=== PATIENT | female | born 1985 | race Caucasian/White ===

== ENCOUNTER 2020-11-24 07:10 | Inpatient (IN) | payer OTHER ==
[2020-11-24] MEDS ORDERED: Acetaminophen 325 MG Tab PO PRN (07:50)
[2020-11-24] MEDS ORDERED: Sodium Chloride 0.9% 10 ML Syringe FLUSH PRN (07:50)
[2020-11-24] MEDS ORDERED: Ondansetron 4 MG/2 ML SDV IVPUSH PRN ×3 (07:50→23:15)
[2020-11-24] MEDS ORDERED: Nalbuphine 10 MG/1 ML Vial IVPUSH PRN (07:50)
[2020-11-24] MEDS ORDERED: Oxytocin/Lactated Ringers 10 UNIT/1,000 ML BAG IV SCH ×2 (08:00)
[2020-11-24] MEDS ORDERED: ePHEDrine 50 MG/ML SDV IVPUSH PRN ×2 (08:14→23:15)
[2020-11-24] MEDS ORDERED: fentaNYL 100 MCG/2 ML SDV EPIDUR PRN (08:14)
[2020-11-24] MEDS ORDERED: Bupivacaine/fentaNYL/NS 100 ML Bag EPIDUR SCH (08:15)
--- NOTE | 2020-11-24 10:34 | PCM.LDHP ---
L&D History of Present Illness - General Date of Service: 11/24/20 Admit Problem/Dx: Patient Status Order with Admit Dx/Problem 11/24/20 07:50 Patient Status [ADT] Routine Admission Diagnosis/Problem Admission Diagnosis/Problem Source of Information: Patient History Limitations: Reports: No Limitations - History of Present Illness Introduction:: Natalie Michaud is a GBS - A+ with negative antibody screen Gestational diabetic 35 year old x 1 female at 40-0 weeks gestation age (SANGEETA 11/24/20) by 6 week US and LMP who presents today for induction of labor. She denies regular contractions, vaginal bleeding or leaking of fluid. movement has been good. Present Illness Comments:: Natalie Michaud is a GBS - A+ with negative antibody screen Gestational diabetic 35 year old x 1 female at 40-0 weeks gestation age (SANGEETA 11/24/20) by 6 week US and LMP who presents today for induction of labor. She denies regular contractions, vaginal bleeding or leaking of fluid. movement has been good. Patient has received [facility] care with Dr. Still; is a known gestational diabetic on metformin. Reports she has been taking her blood sugars semi-regularly. She received the Tdap vaccine on 10/21/20; flu vaccine 05/28/20 at work. OBGYN History 09/03/08: of a female infant weighing 7 lbs 14 ounces at 40 weeks gestational age "Kasia" - per patient had shoulder dystocia G2: current labs: Blood type: A+ Antibody screen: Negative Rubella status: immune Hepatitis B surface antigen: negative Hepatitis C: unknown RPR: negative HIV: negative Gonorrhea: Negative Chlamydia: negative Anatomy US: 08/06/20 Normal growth, JEANNIE, placental position, anatomy. 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 (See Below) Other OB/BYN History: Surgery for imbedded IUD 2018 Psychiatric History: Reports: Anxiety, Depression Endocrine/Metabolic History: Reports: Other (See Below) Other Endocrine/Metabolic History: Gestational Diabetes - Past Surgical History Other Musculoskeletal Surgeries/Procedures:: Arm surgery 2019 Social & Family History - Family History Family Medical History: Unobtainable - Tobacco Use Tobacco Use Status *Q: Never Tobacco User Second Hand Smoke Exposure: No - Recreational Drug Use Recreational Drug Use: No H&P Review of Systems - Review of Systems: Review Of Systems: See Below General: Reports: No Symptoms HEENT: Reports: No Symptoms Pulmonary: Reports: No Symptoms Cardiovascular: Reports: No Symptoms Gastrointestinal: Reports: No Symptoms Genitourinary: Reports: No Symptoms Musculoskeletal: Reports: No Symptoms Skin: Reports: No Symptoms Psychiatric: Reports: No Symptoms Neurological: Reports: No Symptoms L&D Exam - Exam Exam: See Below - Vital Signs Vital Signs: Last Vital Signs Temp 98.2 F 11/24/20 08:00 Pulse Resp 16 11/24/20 08:00 BP 141/78 H 11/24/20 08:00 Pulse Ox Weight: 198 lb 8 oz - OB Specific Contraction Intensity: Mild Movement: Active Heart Tones: Present - Oreilly Score Oreilly Score Cervix Position: Posterior Oreilly Score Consistency: Soft Oreilly Score Effacement: >80% Oreilly Score Dilation: 1-2 cm - Exam General: Alert, Oriented Lungs: Clear to Auscultation, Normal Respiratory Effort Cardiovascular: Regular Rate, Regular Rhythm GI/Abdominal Exam: Normal Bowel Sounds, Soft Extremities: Normal Inspection, No Pedal Edema, Normal Capillary Refill Skin: Warm, Dry, Intact Psychiatric: Alert, Normal Affect, Normal Mood - Patient Data Lab Results Last 24 hrs: Laboratory Results - last 24 hr 11/24/20 11/24/20 11/24/20 Range/Units 07:45 08:04 08:24 WBC 9.74 (3.98-10.04) K/mm3 RBC 4.22 (3.98-5.22) M/mm3 Hgb 11.7 (11.2-15.7) gm/dl Hct 36.9 (34.1-44.9) % MCV 87.4 (79.4-94.8) fl MCH 27.7 (25.6-32.2) pg MCHC 31.7 L (32.2-35.5) g/dl RDW Std Deviation 49.2 H (36.4-46.3) fL Plt Count 308 (182-369) K/mm3 MPV 9.3 L (9.4-12.3) fl Neut % (Auto) 81.7 H (34.0-71.1) % Lymph % (Auto) 11.4 L (19.3-51.7) % [place] % (Auto) 5.5 (4.7-12.5) % Eos % (Auto) 1.0 (0.7-5.8) Baso % (Auto) 0.2 (0.1-1.2) % Neut # (Auto) 7.95 H (1.56-6.13) K/mm3 Lymph # (Auto) 1.11 L (1.18-3.74) K/mm3 [place] # (Auto) 0.54 H (0.24-0.36) K/mm3 Eos # (Auto) 0.10 (0.04-0.36) K/mm3 Baso # (Auto) 0.02 (0.01-0.08) K/mm3 POC Glucose 82 (70-105) mg/dL SARS-CoV-2 RNA (RODRIGO) Negative (NEGATIVE) Result Diagrams: 11/24/20 08:24 - Problem List (1) Gestational diabetes SNOMED Code(s): 12586223 ICD Code: O24.419 - GESTATIONAL DIABETES MELLITUS IN , UNSP CONTROL Status: Acute Current Visit: Yes (2) 40 weeks gestation of SNOMED Code(s): 65082697 ICD Code: Z3A.40 - 40 WEEKS GESTATION OF Status: Acute Current Visit: Yes (3) Anxiety and depression SNOMED Code(s): 533757135 ICD Code: F41.9 - ANXIETY DISORDER, UNSPECIFIED; F32.9 - MAJOR DEPRESSIVE DISORDER, SINGLE EPISODE, UNSPECIFIED Status: Acute Current Visit: Yes Problem List Initiated/Reviewed/Updated: Yes Orders Last 24hrs: Active Orders 24 hr Category Date Time Status Patient Status [ADT] Routine ADT 11/24/20 07:50 Active Activity as Tolerated [RC] PFP Care 11/24/20 07:50 Active Communication Order [RC] ASDIRECTED Care 11/24/20 07:50 Active Notify Provider [RC] ASDIRECTED Care 11/24/20 08:14 Active Notify Provider [RC] PFP Care 11/24/20 07:50 Active Notify Provider [RC] PRN Care 11/24/20 07:50 Active Oxygen Therapy [RC] ASDIRECTED Care 11/24/20 08:14 Active Peripheral IV Care [RC] . DIRECTED Care 11/24/20 07:50 Active Pulse Oximetry [RC] ASDIRECTED Care 11/24/20 08:14 Active Urinary Catheter Assessment [RC] ASDIRECTED Care 11/24/20 07:50 Active Vital Signs [RC] PER UNIT ROUTINE Care 11/24/20 07:50 Active Regular Diet [DIET] Diet 11/24/20 Lunch Active RAPID PLASMA REAGIN,RPR [CHEM] Routine Lab 11/24/20 08:24 Received Acetaminophen [TylenoL] Med 11/24/20 07:50 Active 650 mg PO Q4H PRN Bupivacaine/fentaNYL/NS [fentaNYL/Bupivacaine/NS 2 MCG- Med 11/24/20 08:15 Active 0.125% 100 ML] 100 ml EPIDUR ASDIRECTED Lactated Ringers [Ringers, Lactated] 1,000 ml Med 11/24/20 08:00 Active IV ASDIRECTED Nalbuphine [Nubain] Med 11/24/20 07:50 Active 10 mg IVPUSH Q2H PRN Ondansetron [Zofran] Med 11/24/20 08:14 Active 4 mg IVPUSH ONETIME PRN Ondansetron [Zofran] Med 11/24/20 07:50 Active 4 mg IVPUSH Q4H PRN Oxytocin/Lactated Ringers [Pitocin in LR 10 Units/1,000 Med 11/24/20 08:00 Active ML] 10 unit in 1,000 ml IV .CONTINUOUS Oxytocin/Lactated Ringers [Pitocin in LR 10 Units/1,000 Med 11/24/20 08:00 Active ML] 10 unit in 1,000 ml IV TITRATE Phenylephrine HCl In 0.9% NaCl [Phenylephrine 1 MG/10 Med 11/24/20 08:14 Active ML-NS] 0.1 mg IVPUSH Q10M PRN Sodium Chloride 0.9% [Saline Flush] Med 11/24/20 07:50 Active 10 ml FLUSH ASDIRECTED PRN ePHEDrine [ePHEDrine sulfate] Med 11/24/20 08:14 Active 5 mg IVPUSH ASDIRECTED PRN fentaNYL [Sublimaze] Med 11/24/20 08:14 Active 100 mcg EPIDUR Q3H PRN Electronic Heart Tones Ext w TOCO [WOMSER] Oth 11/24/20 07:50 Ordered Routine Electronic Heart Tones Internal [WOMSER] Per Unit Oth 11/24/20 07:50 Ordered Routine Peripheral IV Insertion Adult [OM.PC] Routine Oth 11/24/20 07:50 Ordered Resuscitation Status Routine Resus Stat 11/24/20 07:50 Ordered Medication Orders Acetaminophen (Acetaminophen 325 Mg Tab) 650 mg PO Q4H PRN PRN Reason: Pain (Mild 1-3) and fever Ephedrine Sulfate (Ephedrine 50 Mg/Ml Sdv) 5 mg IVPUSH ASDIRECTED PRN PRN Reason: Hypotension Fentanyl (Fentanyl 100 Mcg/2 Ml Sdv) 100 mcg EPIDUR Q3H PRN PRN Reason: Pain Fentanyl/Bupivacaine HCl (Bupivacaine/Fentanyl/Ns 100 Ml Bag) 100 ml EPIDUR ASDIRECTED PERRY Oxytocin/Lactated Ringer's (Pitocin In Lr 10 Units/1,000 Ml) 10 unit in 1,000 mls @ 12 mls/hr IV TITRATE PERRY; Protocol Oxytocin/Lactated Ringer's (Pitocin In Lr 10 Units/1,000 Ml) 10 unit in 1,000 mls @ 100 mls/hr IV .CONTINUOUS PERRY; Protocol Lactated Ringer's (Ringers, Lactated) 1,000 mls @ 100 mls/hr IV ASDIRECTED PERRY Miscellaneous Medication (Phenylephrine Hcl In 0.9% Nacl 1 Mg/10 Ml Syringe) 0.1 mg IVPUSH Q10M PRN PRN Reason: Hypotension Nalbuphine HCl (Nalbuphine 10 Mg/1 Ml Vial) 10 mg IVPUSH Q2H PRN PRN Reason: Pain Ondansetron HCl (Ondansetron 4 Mg/2 Ml Sdv) 4 mg IVPUSH Q4H PRN PRN Reason: Nausea/Vomiting Ondansetron HCl (Ondansetron 4 Mg/2 Ml Sdv) 4 mg IVPUSH ONETIME PRN PRN Reason: Nausea/Vomiting Sodium Chloride (Sodium Chloride 0.9% 10 Ml Syringe) 10 ml FLUSH ASDIRECTED PRN PRN Reason: Keep Vein Open Assessment/Plan Comment:: Natalie Michaud is a GBS - A+ with negative antibody screen Gestational diabetic 35 year old x 1 female at 40-0 weeks gestation age (SANGEETA 11/24/20) by 6 week US and LMP who presents today for induction of labor. AROM was performed at 0905 with clear fluid; mother and baby tolerated the pro cedure well. 1. Induction of labor with AROM - Augmentation of labor with Pitocin as indicated 2. GBS - 3. A+ with negative antibody screen 4. Rubella immune 5. Continuous monitoring 6. Activity as tolerated 7. Small amounts of regular diet 8. Pain management as patient desires 9. Plans to breastfeed 10. Anticipate vaginal delivery unless otherwise indicated
[2020-11-24] MEDS: Lactated Ringers 1,000 ML IV SCH ×3 (12:28→20:29)
--- NOTE | 2020-11-24 12:46 | PCM.PREANE ---
Preanesthetic Assessment - Procedure Proposed Procedure: Epidural - Anesthesia/Transfusion/Family Hx Anesthesia History: Prior Anesthesia Without Reaction Family History of Anesthesia Reaction: No Transfusion History: No Prior Transfusion(s) Intubation History: Unknown - Review of Systems General: No Symptoms Pulmonary: No Symptoms Cardiovascular: No Symptoms Gastrointestinal: Constipation Other: Reports: Diabetes (Gestational DM:97@1200), Depression, Anxiety - Physical Assessment NPO Status Date: 11/24/20 NPO Status Time: 15:15 Vital Signs: Last Vital Signs Temp 36.8 C 11/24/20 08:00 Pulse Resp 16 11/24/20 08:00 BP 141/78 H 11/24/20 08:00 Pulse Ox Height: 1.57 m Weight: 90.038 kg ASA Class: 3 Mental Status: Alert & Oriented x3 Airway Class: Mallampati = 2 Dentition: Reports: Normal Dentition, Caries Thyro-Mental Finger Breadths: 3 Mouth Opening Finger Breadths: 3 ROM/Head Extension: Full Lungs: Clear to Auscultation, Normal Respiratory Effort Cardiovascular: Regular Rate, Regular Rhythm, No Murmurs - Lab Values: Laboratory Last Values WBC 9.74 K/mm3 (3.98-10.04) 11/24/20 08:24 RBC 4.22 M/mm3 (3.98-5.22) 11/24/20 08:24 Hgb 11.7 gm/dl (11.2-15.7) 11/24/20 08:24 Hct 36.9 % (34.1-44.9) 11/24/20 08:24 MCV 87.4 fl (79.4-94.8) 11/24/20 08:24 MCH 27.7 pg (25.6-32.2) 11/24/20 08:24 MCHC 31.7 g/dl (32.2-35.5) L 11/24/20 08:24 RDW Std Deviation 49.2 fL (36.4-46.3) H 11/24/20 08:24 Plt Count 308 K/mm3 (182-369) 11/24/20 08:24 MPV 9.3 fl (9.4-12.3) L 11/24/20 08:24 Neut % (Auto) 81.7 % (34.0-71.1) H 11/24/20 08:24 Lymph % (Auto) 11.4 % (19.3-51.7) L 11/24/20 08:24 [place] % (Auto) 5.5 % (4.7-12.5) 11/24/20 08:24 Eos % (Auto) 1.0 (0.7-5.8) 11/24/20 08:24 Baso % (Auto) 0.2 % (0.1-1.2) 11/24/20 08:24 Neut # (Auto) 7.95 K/mm3 (1.56-6.13) H 11/24/20 08:24 Lymph # (Auto) 1.11 K/mm3 (1.18-3.74) L 11/24/20 08:24 Parmer # (Auto) 0.54 K/mm3 (0.24-0.36) H 11/24/20 08:24 Eos # (Auto) 0.10 K/mm3 (0.04-0.36) 11/24/20 08:24 Baso # (Auto) 0.02 K/mm3 (0.01-0.08) 11/24/20 08:24 Sodium 138 mEq/L (136-145) 11/24/20 08:29 Potassium 4.0 mEq/L (3.5-5.1) 11/24/20 08:29 Chloride 104 mEq/L (98-107) 11/24/20 08:29 Carbon Dioxide 22 mEq/L (21-32) 11/24/20 08:29 Anion Gap 16.0 (5-15) H 11/24/20 08:29 BUN 13 mg/dL (7-18) 11/24/20 08:29 Creatinine 0.8 mg/dL (0.55-1.02) 11/24/20 08:29 Est Cr Clr Drug Dosing 78.37 mL/min 11/24/20 08:29 Estimated GFR (MDRD) > 60 mL/min (>60) 11/24/20 08:29 BUN/Creatinine Ratio 16.3 (14-18) 11/24/20 08:29 Glucose 84 mg/dL (74-106) 11/24/20 08:29 POC Glucose 82 mg/dL (70-105) 11/24/20 08:04 Calcium 9.3 mg/dL (8.5-10.1) 11/24/20 08:29 Total Bilirubin 0.2 mg/dL (0.2-1.0) 11/24/20 08:29 AST 17 U/L (15-37) 11/24/20 08:29 ALT 23 U/L (14-59) 11/24/20 08:29 Alkaline Phosphatase 238 U/L (46-116) H 11/24/20 08:29 Total Protein 6.8 g/dl (6.4-8.2) 11/24/20 08:29 Albumin 2.9 g/dl (3.4-5.0) L 11/24/20 08:29 Globulin 3.9 gm/dL 11/24/20 08:29 Albumin/Globulin Ratio 0.7 (1-2) L 11/24/20 08:29 SARS-CoV-2 RNA (RODRIGO) Negative (NEGATIVE) 11/24/20 07:45 Above labs reviewed and noted and within acceptable ranges to proceed with epidural if desired. 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) Other OB/BYN History: Surgery for imbedded IUD 2018 Psychiatric History: Reports: Anxiety, Depression Endocrine/Metabolic History: Reports: Other (See Below) Other Endocrine/Metabolic History: Gestational Diabetes - Past Surgical History Other Musculoskeletal Surgeries/Procedures:: Arm surgery 2019 - SUBSTANCE USE Tobacco Use Status *Q: Never Tobacco User Second Hand Smoke Exposure: No Recreational Drug Use History: No - HOME MEDS Home Medications: Home Meds Pnv No.95/Ferrous Fum/Folic AC [ Tablet] 1 tab PO DAILY 11/24/20 [History] metFORMIN HCl [Metformin HCl] 1,000 mg PO DAILY 11/24/20 [History] - CURRENT (IN HOUSE) MEDS Current Meds: Current Medications Acetaminophen (Acetaminophen 325 Mg Tab) 650 mg PO Q4H PRN PRN Reason: Pain (Mild 1-3) and fever Ephedrine Sulfate (Ephedrine 50 Mg/Ml Sdv) 5 mg IVPUSH ASDIRECTED PRN PRN Reason: Hypotension Fentanyl (Fentanyl 100 Mcg/2 Ml Sdv) 100 mcg EPIDUR Q3H PRN PRN Reason: Pain Fentanyl/Bupivacaine HCl (Bupivacaine/Fentanyl/Ns 100 Ml Bag) 100 ml EPIDUR ASDIRECTED PERRY Oxytocin/Lactated Ringer's (Pitocin In Lr 10 Units/1,000 Ml) 10 unit in 1,000 mls @ 12 mls/hr IV TITRATE PERRY; Protocol Last Admin: 11/24/20 12:29 Dose: 2 munits/min, 12 mls/hr Documented by: Oxytocin/Lactated Ringer's (Pitocin In Lr 10 Units/1,000 Ml) 10 unit in 1,000 mls @ 100 mls/hr IV .CONTINUOUS PERRY; Protocol Lactated Ringer's (Ringers, Lactated) 1,000 mls @ 100 mls/hr IV ASDIRECTED PERRY Last Admin: 11/24/20 12:28 Dose: 100 mls/hr Documented by: Miscellaneous Medication (Phenylephrine Hcl In 0.9% Nacl 1 Mg/10 Ml Syringe) 0.1 mg IVPUSH Q10M PRN PRN Reason: Hypotension Nalbuphine HCl (Nalbuphine 10 Mg/1 Ml Vial) 10 mg IVPUSH Q2H PRN PRN Reason: Pain Ondansetron HCl (Ondansetron 4 Mg/2 Ml Sdv) 4 mg IVPUSH Q4H PRN PRN Reason: Nausea/Vomiting Ondansetron HCl (Ondansetron 4 Mg/2 Ml Sdv) 4 mg IVPUSH ONETIME PRN PRN Reason: Nausea/Vomiting Sodium Chloride (Sodium Chloride 0.9% 10 Ml Syringe) 10 ml FLUSH ASDIRECTED PRN PRN Reason: Keep Vein Open
--- NOTE | 2020-11-24 17:21 | PCM.PNLD ---
Labor Progress Note - VS & Meds Vital Signs: Last Vital Signs Temp 36.8 C 11/24/20 08:00 Pulse Resp 16 11/24/20 08:00 BP 141/78 H 11/24/20 08:00 Pulse Ox Active Medications: Current Medications Acetaminophen (Acetaminophen 325 Mg Tab) 650 mg PO Q4H PRN PRN Reason: Pain (Mild 1-3) and fever Ephedrine Sulfate (Ephedrine 50 Mg/Ml Sdv) 5 mg IVPUSH ASDIRECTED PRN PRN Reason: Hypotension Fentanyl (Fentanyl 100 Mcg/2 Ml Sdv) 100 mcg EPIDUR Q3H PRN PRN Reason: Pain Fentanyl/Bupivacaine HCl (Bupivacaine/Fentanyl/Ns 100 Ml Bag) 100 ml EPIDUR ASDIRECTED PERRY Oxytocin/Lactated Ringer's (Pitocin In Lr 10 Units/1,000 Ml) 10 unit in 1,000 mls @ 12 mls/hr IV TITRATE PERRY; Protocol Last Titration: 11/24/20 17:14 Dose: 3 munits/min, 18 mls/hr Documented by: Oxytocin/Lactated Ringer's (Pitocin In Lr 10 Units/1,000 Ml) 10 unit in 1,000 mls @ 100 mls/hr IV .CONTINUOUS PERRY; Protocol Lactated Ringer's (Ringers, Lactated) 1,000 mls @ 100 mls/hr IV ASDIRECTED PERRY Last Admin: 11/24/20 12:28 Dose: 100 mls/hr Documented by: Miscellaneous Medication (Phenylephrine Hcl In 0.9% Nacl 1 Mg/10 Ml Syringe) 0.1 mg IVPUSH Q10M PRN PRN Reason: Hypotension Nalbuphine HCl (Nalbuphine 10 Mg/1 Ml Vial) 10 mg IVPUSH Q2H PRN PRN Reason: Pain Ondansetron HCl (Ondansetron 4 Mg/2 Ml Sdv) 4 mg IVPUSH Q4H PRN PRN Reason: Nausea/Vomiting Ondansetron HCl (Ondansetron 4 Mg/2 Ml Sdv) 4 mg IVPUSH ONETIME PRN PRN Reason: Nausea/Vomiting Sodium Chloride (Sodium Chloride 0.9% 10 Ml Syringe) 10 ml FLUSH ASDIRECTED PRN PRN Reason: Keep Vein Open - Uterine Contractions Contraction Intensity: Mild - Vaginal Exam Dilation (cm): 2 Effacement (Percent): 80 Station: -2 Cervical Position: Posterior - Labor Progress (Free Text) Labor Progress: Minimal progress. Pitocin was off with deep variable decelerations from 1-4. Strip improved with pitocin off. Restarted at 4 pm and reassuring monitoring since. Discussed indications for if needed. Continue to monitor. Increase pitocin. Anticipate unless otherwise indicated.
[2020-11-24] MEDS ORDERED: Bupivacaine 0.25% 10 ML SDV ONE (18:00)
--- NOTE | 2020-11-24 22:07 | PCM.PNLD ---
Labor Progress Note - VS & Meds Vital Signs: Last Vital Signs Temp 36.8 C 11/24/20 08:00 Pulse Resp 16 11/24/20 08:00 BP 141/78 H 11/24/20 08:00 Pulse Ox Active Medications: Current Medications Acetaminophen (Acetaminophen 325 Mg Tab) 650 mg PO Q4H PRN PRN Reason: Pain (Mild 1-3) and fever Ephedrine Sulfate (Ephedrine 50 Mg/Ml Sdv) 5 mg IVPUSH ASDIRECTED PRN PRN Reason: Hypotension Fentanyl (Fentanyl 100 Mcg/2 Ml Sdv) 100 mcg EPIDUR Q3H PRN PRN Reason: Pain Last Admin: 11/24/20 19:54 Dose: 100 mcg Documented by: Fentanyl/Bupivacaine HCl (Bupivacaine/Fentanyl/Ns 100 Ml Bag) 100 ml EPIDUR ASDIRECTED PERRY Oxytocin/Lactated Ringer's (Pitocin In Lr 10 Units/1,000 Ml) 10 unit in 1,000 mls @ 12 mls/hr IV TITRATE PERRY; Protocol Last Titration: 11/24/20 18:15 Dose: 6 munits/min, 36 mls/hr Documented by: Oxytocin/Lactated Ringer's (Pitocin In Lr 10 Units/1,000 Ml) 10 unit in 1,000 mls @ 100 mls/hr IV .CONTINUOUS PERRY; Protocol Lactated Ringer's (Ringers, Lactated) 1,000 mls @ 100 mls/hr IV ASDIRECTED PERRY Last Admin: 11/24/20 20:29 Dose: 100 mls/hr Documented by: Miscellaneous Medication (Phenylephrine Hcl In 0.9% Nacl 1 Mg/10 Ml Syringe) 0.1 mg IVPUSH Q10M PRN PRN Reason: Hypotension Nalbuphine HCl (Nalbuphine 10 Mg/1 Ml Vial) 10 mg IVPUSH Q2H PRN PRN Reason: Pain Ondansetron HCl (Ondansetron 4 Mg/2 Ml Sdv) 4 mg IVPUSH Q4H PRN PRN Reason: Nausea/Vomiting Ondansetron HCl (Ondansetron 4 Mg/2 Ml Sdv) 4 mg IVPUSH ONETIME PRN PRN Reason: Nausea/Vomiting Sodium Chloride (Sodium Chloride 0.9% 10 Ml Syringe) 10 ml FLUSH ASDIRECTED PRN PRN Reason: Keep Vein Open - Uterine Contractions Contraction Intensity: Mild - Monitoring Decelerations: Variable, Recurrent (>50% x 20 min) Strip Review: Category II - Vaginal Exam Dilation (cm): 5 Effacement (Percent): 80 Station: -2 Cervical Position: Posterior - Labor Progress (Free Text) Labor Progress: Patient with some progress now, however deep variable decelerations. If minimal change in next hour would move toward as while variability good deep variable decelerations with enough contractions would consider . No contractions now off of pitocin so will restart.
[2020-11-24] MEDS ORDERED: Citric Acid/Sodium Citrate Solution 30 ML Cup PO ONE (22:32)
[2020-11-24] MEDS ORDERED: Azithromycin 500 MG in Sodium Chloride 0.9% 250 ML IV ONE (22:32)
[2020-11-24] MEDS ORDERED: Metoclopramide 10 MG/2 ML SDV IVPUSH ONE (22:32)
[2020-11-24] MEDS ORDERED: ceFAZolin 2 GM in Premix Bag 1 BAG IV ONE (22:32)
--- NOTE | 2020-11-24 22:38 | PCM.SN.2 ---
- Free Text/Narrative Note: Minimal progress. Now with deep variable decelerations again. and no cervical change. Risks, benefits and alternatives discussed and will proceed with primary section.
[2020-11-24] MEDS ORDERED: Metoclopramide 10 MG/2 ML SDV ONE (22:41)
[2020-11-24] MEDS ORDERED: Bupivacaine 0.5% 30 ML SDV ONE (22:51)
[2020-11-24] MEDS ORDERED: Lidocaine 2% with EPINEPHrine 1:200,000 20 ML SDV ONE (22:52)
[2020-11-24] MEDS ORDERED: Lactated Ringers 2,000 ML ONE (22:52)
[2020-11-24] MEDS ORDERED: fentaNYL 100 MCG/2 ML SDV ONE (22:52)
[2020-11-24] MEDS ORDERED: Oxytocin 10 Units/1 ML SDV ONE (22:52)
[2020-11-24] MEDS ORDERED: Morphine PF 10 MG/10 ML SDV ONE (22:52)
[2020-11-24] MEDS ORDERED: Ondansetron 4 MG/2 ML SDV ONE (22:52)
[2020-11-24] MEDS ORDERED: Ketorolac 30 MG/ML SDV ONE (22:52)
[2020-11-24] MEDS ORDERED: ceFAZolin 1 GM Vial ONE (22:52)
[2020-11-24] MEDS ORDERED: fentaNYL 100 MCG/2 ML SDV IVPUSH PRN (23:15)
[2020-11-24] MEDS ORDERED: HYDROmorphone 0.5 MG/0.5 ML Syringe IVPUSH PRN (23:15)
[2020-11-24] MEDS ORDERED: diphenhydrAMINE 50 MG/ML SDV IVPUSH PRN (23:15)
[2020-11-24] MEDS ORDERED: Phenylephrine/Normal Saline 100 MCG/ML 10 ML Syringe IVPUSH PRN (23:15)
--- NOTE | 2020-11-24 23:59 | PCM.POSTAN ---
POST ANESTHESIA ASSESSMENT - MENTAL STATUS Mental Status: Alert - VITAL SIGNS Vital Signs: Last Vital Signs Temp 98.1 11/24/202352 Pulse 91 11/24/202352 Resp 14 11/24/202352 BP 93/53 11/24/202352 Pulse Ox 95% 11/24/202352 - RESPIRATORY Respiratory Status: Respiratory Rate WNL, Airway Patent, O2 Saturation Stable - CARDIOVASCULAR CV Status: Pulse Rate WNL, Blood Pressure Stable - GASTROINTESTINAL GI Status: No Symptoms - POST OP HYDRATION Hydration Status: Adequate & Stable
--- NOTE | 2020-11-25 00:03 | PCM.OPNOTE ---
- General Post-Op/Procedure Note Date of Surgery/Procedure: 11/25/20 Operative Procedure(s): primary section Findings: viable female, weight 7#12oz, 9/9 APGARS at 2319. Normal uterus tubes and ovaries. Pre Op Diagnosis: NRFHT Post-Op Diagnosis: Same Primary Surgeon: Celia Peguero Anesthesia Provider: Marcy Vargas Director Of Officiating: Anju Maciel Director Of Officiating: Cameron Tolentino Fluid Replacement, Intraop: 800 Output, Urine Amount: 200 EBL in mLs: 600 Complications: None Condition: Good Free Text/Narrative:: The patient was taken to the operating room where epidural anesthesia was dosed to surgical levels without difficulty. The patient was prepped and draped in the usual sterile fashion in the dorsal supine position with a leftward tilt. A Pfannenstiel skin incision was made with the scalpel and carried through to the underlying layer of fascia. The fascia was incised in the midline and extended laterally using Leung scissors. Cristiano clamps were used to elevate the superior aspect of the fascial incision, which was elevated, and the underlying rectus muscles were dissected off bluntly and using Leung scissors. Small area of bleeding on rectus rendered hemostatic with one figure of eight suture. Attention was then turned to the inferior aspect of the fascial incision, which in similar fashion was grasped with Cristiano clamps, elevated, and the underlying rectus muscles were dissected off bluntly and using the leung. The rectus muscles were dissected in the midline. The peritoneum was entered bluntly; this incision was extended superiorly and inferiorly with good visualization of the bladder. The bladder blade was inserted. The vesicouterine peritoneum was identified and entered sharply using Metzenbaum scissors. This incision was extended laterally and the bladder flap was created digitally. The bladder blade was reinserted. The lower uterine segment was incised in a transverse fashion using the scalpel and with digital traction. Clear fluid was noted. The was subsequently delivered by flexing the head to the incision. Body and shoulders followed without difficulty. The cord was clamped and cut. The infant was subsequently handed to the awaiting dean of admissions whose presence had been requested.. The placenta was delivered spontaneously intact with a three-vessel cord noted. The uterus was exteriorized and cleared of all clots and debris. The uterine incision was repaired in 2 layers using 0 monocryl. Hemostasis was visualized. Hemostasis was visualized bilaterally. The uterus was returned to the abdomen. The uterine incision was reexamined and it was noted to be hemostatic. The pelvis was copiously irrigated. The fascia was closed with 1 PDS suture, and the skin was closed with 3-0 monocryl. Sponge, lap, and instrument counts were correct x2. The patient was stable at the completion of the procedure and was subsequently transferred to the recovery room in stable condition.
[2020-11-25] MEDS ORDERED: Naloxone 0.4 MG/ML SDV IVPUSH PRN (01:42)
[2020-11-25] MEDS ORDERED: diphenhydrAMINE 50 MG/ML SDV IVPUSH PRN (01:42)
[2020-11-25] MEDS ORDERED: Dextrose 5%-Lactated Ringers 1,000 ML IV SCH (01:42)
[2020-11-25] MEDS ORDERED: ePHEDrine 50 MG/ML SDV IVPUSH PRN (01:42)
[2020-11-25] MEDS ORDERED: Acetaminophen/oxyCODONE 325-5 MG Tab PO PRN (01:42)
[2020-11-25] MEDS ORDERED: Ketorolac 30 MG/ML SDV IVPUSH SCH (02:00)
[2020-11-25] MEDS: Ketorolac 30 MG/ML SDV IVPUSH SCH ×3 (06:47→18:35)
--- NOTE | 2020-11-25 07:56 | PCM48HPAN ---
Post Anesthesia Note - EVALUATION WITHIN 48HRS OF ANESTHETIC Vital Signs in Normal Range: Yes Patient Participated in Evaluation: Yes Respiratory Function Stable: Yes Airway Patent: Yes Cardiovascular Function Stable: Yes Hydration Status Stable: Yes Pain Control Satisfactory: Yes Nausea and Vomiting Control Satisfactory: Yes Mental Status Recovered: Yes Vital Signs: Last Vital Signs Temp 37.1 C 11/25/20 03:10 Pulse 95 11/25/20 03:12 Resp 16 11/25/20 03:10 BP 154/72 H 11/25/20 03:12 Pulse Ox 95 11/25/20 03:12
--- NOTE | 2020-11-25 10:57 | PCM.PNPP ---
- General Info Date of Service: 11/25/20 Subjective Update: POD1 after late evening primary for NRFHT Doing well. No complaints. Functional Status: Reports: Pain Controlled - Review of Systems General: Reports: No Symptoms HEENT: Reports: No Symptoms Pulmonary: Reports: No Symptoms Cardiovascular: Reports: No Symptoms Gastrointestinal: Reports: No Symptoms Genitourinary: Reports: No Symptoms Musculoskeletal: Reports: No Symptoms Skin: Reports: No Symptoms Neurological: Reports: No Symptoms Psychiatric: Reports: No Symptoms - General Info Date of Service: 11/25/20 - Patient Data Vital Signs - Most Recent: Last Vital Signs Temp 37.1 C 11/25/20 03:10 Pulse 95 11/25/20 03:12 Resp 14 11/25/20 10:00 BP 154/72 H 11/25/20 03:12 Pulse Ox 97 11/25/20 10:00 Weight - Most Recent: 90.038 kg I&O - Last 24 Hours: Intake & Output 11/24/20 11/25/20 11/25/20 22:59 06:59 14:59 Intake Total 1200 120 Output Total 200 Balance 1000 120 Lab Results - Last 24 Hours: Laboratory Results - last 24 hr 11/24/20 11/24/20 11/24/20 Range/Units 08:29 12:02 12:30 WBC (3.98-10.04) K/mm3 RBC (3.98-5.22) M/mm3 Hgb (11.2-15.7) gm/dl Hct (34.1-44.9) % MCV (79.4-94.8) fl MCH (25.6-32.2) pg MCHC (32.2-35.5) g/dl RDW Std Deviation (36.4-46.3) fL Plt Count (182-369) K/mm3 MPV (9.4-12.3) fl Neut % (Auto) (34.0-71.1) % Lymph % (Auto) (19.3-51.7) % Mobile % (Auto) (4.7-12.5) % Eos % (Auto) (0.7-5.8) Baso % (Auto) (0.1-1.2) % Neut # (Auto) (1.56-6.13) K/mm3 Lymph # (Auto) (1.18-3.74) K/mm3 Mobile # (Auto) (0.24-0.36) K/mm3 Eos # (Auto) (0.04-0.36) K/mm3 Baso # (Auto) (0.01-0.08) K/mm3 Manual Slide Review Sodium 138 (136-145) mEq/L Potassium 4.0 (3.5-5.1) mEq/L Chloride 104 (98-107) mEq/L Carbon Dioxide 22 (21-32) mEq/L Anion Gap 16.0 H (5-15) BUN 13 (7-18) mg/dL Creatinine 0.8 (0.55-1.02) mg/dL Est Cr Clr Drug Dosing 78.37 mL/min Estimated GFR (MDRD) > 60 (>60) mL/min BUN/Creatinine Ratio 16.3 (14-18) Glucose 84 (74-106) mg/dL POC Glucose 97 (70-105) mg/dL Calcium 9.3 (8.5-10.1) mg/dL Total Bilirubin 0.2 (0.2-1.0) mg/dL AST 17 (15-37) U/L ALT 23 (14-59) U/L Alkaline Phosphatase 238 H (46-116) U/L Total Protein 6.8 (6.4-8.2) g/dl Albumin 2.9 L (3.4-5.0) g/dl Globulin 3.9 gm/dL Albumin/Globulin Ratio 0.7 L (1-2) Ur Random Creatinine 96.0 (30.0-125.0) mg/dL U Random Total Protein 37.9 H (0.0-11.8) mg/dL Protein/Creatinin Ratio 394.8 H (0-149) mg/g 11/24/20 11/24/20 11/25/20 Range/Units 15:42 20:36 00:09 WBC (3.98-10.04) K/mm3 RBC (3.98-5.22) M/mm3 Hgb (11.2-15.7) gm/dl Hct (34.1-44.9) % MCV (79.4-94.8) fl MCH (25.6-32.2) pg MCHC (32.2-35.5) g/dl RDW Std Deviation (36.4-46.3) fL Plt Count (182-369) K/mm3 MPV (9.4-12.3) fl Neut % (Auto) (34.0-71.1) % Lymph % (Auto) (19.3-51.7) % Mobile % (Auto) (4.7-12.5) % Eos % (Auto) (0.7-5.8) Baso % (Auto) (0.1-1.2) % Neut # (Auto) (1.56-6.13) K/mm3 Lymph # (Auto) (1.18-3.74) K/mm3 Mobile # (Auto) (0.24-0.36) K/mm3 Eos # (Auto) (0.04-0.36) K/mm3 Baso # (Auto) (0.01-0.08) K/mm3 Manual Slide Review Sodium (136-145) mEq/L Potassium (3.5-5.1) mEq/L Chloride (98-107) mEq/L Carbon Dioxide (21-32) mEq/L Anion Gap (5-15) BUN (7-18) mg/dL Creatinine (0.55-1.02) mg/dL Est Cr Clr Drug Dosing mL/min Estimated GFR (MDRD) (>60) mL/min BUN/Creatinine Ratio (14-18) Glucose (74-106) mg/dL POC Glucose 117 H 80 118 H (70-105) mg/dL Calcium (8.5-10.1) mg/dL Total Bilirubin (0.2-1.0) mg/dL AST (15-37) U/L ALT (14-59) U/L Alkaline Phosphatase (46-116) U/L Total Protein (6.4-8.2) g/dl Albumin (3.4-5.0) g/dl Globulin gm/dL Albumin/Globulin Ratio (1-2) Ur Random Creatinine (30.0-125.0) mg/dL U Random Total Protein (0.0-11.8) mg/dL Protein/Creatinin Ratio (0-149) mg/g 11/25/20 Range/Units 05:38 WBC 15.60 H (3.98-10.04) K/mm3 RBC 3.42 L (3.98-5.22) M/mm3 Hgb 9.4 L D (11.2-15.7) gm/dl Hct 30.0 L (34.1-44.9) % MCV 87.7 (79.4-94.8) fl MCH 27.5 (25.6-32.2) pg MCHC 31.3 L (32.2-35.5) g/dl RDW Std Deviation 48.1 H (36.4-46.3) fL Plt Count 271 (182-369) K/mm3 MPV 9.6 (9.4-12.3) fl Neut % (Auto) 88.3 H (34.0-71.1) % Lymph % (Auto) 6.1 L (19.3-51.7) % Mobile % (Auto) 5.3 (4.7-12.5) % Eos % (Auto) 0 L (0.7-5.8) Baso % (Auto) 0.1 (0.1-1.2) % Neut # (Auto) 13.79 H (1.56-6.13) K/mm3 Lymph # (Auto) 0.95 L (1.18-3.74) K/mm3 Mobile # (Auto) 0.82 H (0.24-0.36) K/mm3 Eos # (Auto) 0.00 L (0.04-0.36) K/mm3 Baso # (Auto) 0.01 (0.01-0.08) K/mm3 Manual Slide Review Abnormal smear Sodium (136-145) mEq/L Potassium (3.5-5.1) mEq/L Chloride (98-107) mEq/L Carbon Dioxide (21-32) mEq/L Anion Gap (5-15) BUN (7-18) mg/dL Creatinine (0.55-1.02) mg/dL Est Cr Clr Drug Dosing mL/min Estimated GFR (MDRD) (>60) mL/min BUN/Creatinine Ratio (14-18) Glucose (74-106) mg/dL POC Glucose (70-105) mg/dL Calcium (8.5-10.1) mg/dL Total Bilirubin (0.2-1.0) mg/dL AST (15-37) U/L ALT (14-59) U/L Alkaline Phosphatase (46-116) U/L Total Protein (6.4-8.2) g/dl Albumin (3.4-5.0) g/dl Globulin gm/dL Albumin/Globulin Ratio (1-2) Ur Random Creatinine (30.0-125.0) mg/dL U Random Total Protein (0.0-11.8) mg/dL Protein/Creatinin Ratio (0-149) mg/g Med Orders - Current: Current Medications Diphenhydramine HCl (Diphenhydramine 50 Mg/Ml Sdv) 25 mg IVPUSH Q6H PRN PRN Reason: Itching or Nausea Ephedrine Sulfate (Ephedrine 50 Mg/Ml Sdv) 5 mg IVPUSH SEECOMMENT PRN PRN Reason: Other Ibuprofen (Ibuprofen 600 Mg Tab) 600 mg PO Q6H PRN PRN Reason: mild pain or fever Ketorolac Tromethamine (Ketorolac 30 Mg/Ml Sdv) 30 mg IVPUSH Q6H PERRY Stop: 11/25/20 17:31 Last Admin: 11/25/20 06:47 Dose: 30 mg Documented by: Naloxone HCl (Naloxone 0.4 Mg/Ml Sdv) 0.1 mg IVPUSH SEECOMMENT PRN PRN Reason: Respiratory Depression Oxycodone/Acetaminophen (Acetaminophen/Oxycodone 325-5 Mg Tab) 1 tab PO Q4H PRN PRN Reason: Pain (moderate 4-6) Oxycodone/Acetaminophen (Acetaminophen/Oxycodone 325-5 Mg Tab) 2 tab PO Q4H PRN PRN Reason: Pain (severe 7-10) Discontinued Medications Acetaminophen (Acetaminophen 325 Mg Tab) 650 mg PO Q4H PRN PRN Reason: Pain (Mild 1-3) and fever Bupivacaine HCl (Bupivacaine 0.5% 30 Ml Sdv) Confirm Administered Dose 30 ml .ROUTE .STK-MED ONE Stop: 11/24/20 22:52 Last Admin: 11/24/20 23:13 Dose: 17 ml Documented by: Bupivacaine HCl (Bupivacaine 0.25% 10 Ml Sdv) 10 ml .ROUTE .STK-MED ONE Stop: 11/24/20 18:01 Cefazolin Sodium (Cefazolin 1 Gm Vial) Confirm Administered Dose 2 gm .ROUTE .STK-MED ONE Stop: 11/24/20 22:53 Citric Acid/Sodium Citrate (Citric Acid/Sodium Citrate Solution 30 Ml Cup) 30 ml PO ONETIME ONE Stop: 11/24/20 22:33 Last Admin: 11/24/20 22:43 Dose: 30 ml Documented by: Diphenhydramine HCl (Diphenhydramine 50 Mg/Ml Sdv) 25 mg IVPUSH Q6H PRN PRN Reason: pruritis Ephedrine Sulfate (Ephedrine 50 Mg/Ml Sdv) 5 mg IVPUSH ASDIRECTED PRN PRN Reason: Hypotension Ephedrine Sulfate (Ephedrine 50 Mg/Ml Sdv) 5 mg IVPUSH ASDIRECTED PRN PRN Reason: Hypotension Fentanyl (Fentanyl 100 Mcg/2 Ml Sdv) 100 mcg EPIDUR Q3H PRN PRN Reason: Pain Last Admin: 11/24/20 19:54 Dose: 100 mcg Documented by: Fentanyl (Fentanyl 100 Mcg/2 Ml Sdv) Confirm Administered Dose 100 mcg .ROUTE .K-MED ONE Stop: 11/24/20 22:53 Fentanyl (Fentanyl 100 Mcg/2 Ml Sdv) 50 mcg IVPUSH Q20M PRN PRN Reason: Pain Fentanyl/Bupivacaine HCl (Bupivacaine/Fentanyl/Ns 100 Ml Bag) 100 ml EPIDUR ASDIRECTED PERRY Hydromorphone HCl (Hydromorphone 0.5 Mg/0.5 Ml Syringe) 0.5 mg IVPUSH Q10M PRN PRN Reason: Pain (severe 7-10) Oxytocin/Lactated Ringer's (Pitocin In Lr 10 Units/1,000 Ml) 10 unit in 1,000 mls @ 12 mls/hr IV TITRATE PERRY; Protocol Last Titration: 11/24/20 22:09 Dose: 2 munits/min, 12 mls/hr Documented by: Oxytocin/Lactated Ringer's (Pitocin In Lr 10 Units/1,000 Ml) 10 unit in 1,000 mls @ 100 mls/hr IV .CONTINUOUS PERRY; Protocol Lactated Ringer's (Ringers, Lactated) 1,000 mls @ 100 mls/hr IV ASDIRECTED PERRY Last Admin: 11/24/20 20:29 Dose: 100 mls/hr Documented by: Cefazolin Sodium/Dextrose 2 gm (/ Premix) 50 mls @ 100 mls/hr IV ONETIME ONE Stop: 11/24/20 23:01 Last Admin: 11/25/20 04:40 Dose: Not Given Documented by: Azithromycin 500 mg/ Sodium (Chloride) 250 mls @ 250 mls/hr IV ONETIME ONE Stop: 11/24/20 23:31 Last Admin: 11/24/20 22:48 Dose: 250 mls/hr Documented by: Lactated Ringer's (Ringers, Lactated) Confirm Administered Dose 2,000 mls @ as directed .ROUTE .STK-MED ONE Stop: 11/24/20 22:53 Dextrose/Lactated Ringer's (Dextrose 5%-Lactated Ringers) 1,000 mls @ 125 mls/hr IV ASDIRECTED [facility] Stop: 11/25/20 09:41 Last Admin: 11/25/20 02:56 Dose: 125 mls/hr Documented by: Ketorolac Tromethamine (Ketorolac 30 Mg/Ml Sdv) Confirm Administered Dose 30 mg .ROUTE .STK-MED ONE Stop: 11/24/20 22:53 Ketorolac Tromethamine (Ketorolac 30 Mg/Ml Sdv) 30 mg IVPUSH Q6H [facility] Stop: 11/25/20 14:01 Last Admin: 11/25/20 04:38 Dose: Not Given Documented by: Lidocaine/Epinephrine (Lidocaine 2% With Epinephrine 1:200,000 20 Ml Sdv) Co nfirm Administered Dose 20 ml .ROUTE .STK-MED ONE Stop: 11/24/20 22:53 Metoclopramide HCl (Metoclopramide 10 Mg/2 Ml Sdv) 10 mg IVPUSH ONETIME ONE Stop: 11/24/20 22:33 Last Admin: 11/24/20 22:44 Dose: 10 mg Documented by: Metoclopramide HCl (Metoclopramide 10 Mg/2 Ml Sdv) Confirm Administered Dose 10 mg .ROUTE .STK-MED ONE Stop: 11/24/20 22:42 Last Admin: 11/25/20 07:12 Dose: Not Given Documented by: Miscellaneous Medication (Phenylephrine Hcl In 0.9% Nacl 1 Mg/10 Ml Syringe) 0.1 mg IVPUSH Q10M PRN PRN Reason: Hypotension Miscellaneous Medication (Phenylephrine Hcl In 0.9% Nacl 1 Mg/10 Ml Syringe) Confirm Administered Dose 1 mg .ROUTE .STK-MED ONE Stop: 11/24/20 22:53 Morphine Sulfate (Morphine Pf 10 Mg/10 Ml Sdv) Confirm Administered Dose 10 mg .ROUTE .[place]-MED ONE Stop: 11/24/20 22:53 Nalbuphine HCl (Nalbuphine 10 Mg/1 Ml Vial) 10 mg IVPUSH Q2H PRN PRN Reason: Pain Ondansetron HCl (Ondansetron 4 Mg/2 Ml Sdv) 4 mg IVPUSH Q4H PRN PRN Reason: Nausea/Vomiting Ondansetron HCl (Ondansetron 4 Mg/2 Ml Sdv) 4 mg IVPUSH ONETIME PRN PRN Reason: Nausea/Vomiting Ondansetron HCl (Ondansetron 4 Mg/2 Ml Sdv) Confirm Administered Dose 4 mg .ROUTE .[place]-MED ONE Stop: 11/24/20 22:53 Ondansetron HCl (Ondansetron 4 Mg/2 Ml Sdv) 4 mg IVPUSH ONETIME PRN PRN Reason: Nausea/Vomiting Oxytocin (Oxytocin 10 Units/1 Ml Sdv) Confirm Administered Dose 10 unit .ROUTE .[employer] ONE Stop: 11/24/20 22:53 Phenylephrine HCl (Phenylephrine/Normal Saline 100 Mcg/Ml 10 Ml Syringe) 0.1 mg IVPUSH Q10M PRN PRN Reason: Hypotension Sodium Chloride (Sodium Chloride 0.9% 10 Ml Syringe) 10 ml FLUSH ASDIRECTED PRN PRN Reason: Keep Vein Open - Infant Interaction Support Person: Significant Other - Recovery Exam Fundal Tone: Firm Fundal Level: At Umbilicus Lochia Amount: Small Lochia Color: Rubra/Red Perineum Description: Intact, Minimal Bruising/Swelling Episiotomy/Laceration: None Bladder Status: Indwelling Catheter in Place - Exam General: Alert, Oriented HEENT: Pupils Equal Neck: Supple Lungs: Clear to Auscultation, Normal Respiratory Effort Cardiovascular: Regular Rate, Regular Rhythm GI/Abdominal Exam: Normal Bowel Sounds, Soft, Non-Tender, No Organomegaly, No Distention, No Abnormal Bruit, No Mass, Pelvis Stable Extremities: Normal Inspection, Normal Range of Motion, Non-Tender, No Pedal Edema, Normal Capillary Refill Skin: Warm, Dry, Intact Wound/Incisions: Healing Well Neurological: No New Focal Deficit Psy/Mental Status: Alert, Normal Affect, Normal Mood - Problem List Review Problem List Initiated/Reviewed/Updated: Yes - My Orders Last 24 Hours: My Active Orders 11/25/20 01:42 Acetaminophen/oxyCODONE [Percocet 325-5 MG] 1 tab PO Q4H PRN Acetaminophen/oxyCODONE [Percocet 325-5 MG] 2 tab PO Q4H PRN Naloxone [Narcan] 0.1 mg IVPUSH SEECOMMENT PRN diphenhydrAMINE [Benadryl] 25 mg IVPUSH Q6H PRN ePHEDrine [ePHEDrine sulfate] 5 mg IVPUSH SEECOMMENT PRN 11/25/20 01:42 Communication Order [RC] PER UNIT ROUTINE Communication Order [RC] PER UNIT ROUTINE Communication Order [RC] PER UNIT ROUTINE Notify Provider Intake and Out [RC] ASDIRECTED Vital Signs [RC] Q1HR Assess Lochia [WOMSER] Per Unit Routine Assess Uterine Involution [WOMSER] Per Unit Routine Medication Administration Instruction [OM.PC] Routine 11/25/20 05:30 Ketorolac [Toradol] 30 mg IVPUSH Q6H 11/25/20 Breakfast Regular Diet [DIET] 11/25/20 23:30 Ibuprofen [Motrin] 600 mg PO Q6H PRN 11/26/20 01:25 Urinary Catheter Removal [RC] Per Unit Routine - Assessment Assessment:: POD1 Doing well Routine cares. Likely home Monday 2hour glucola at 6 weeks. - Plan Plan:: Natalie Michaud is a GBS - A+ with negative antibody screen Gestational diabetic 35 year old x 1 female at 40-0 weeks gestation age (S[place]ET[place] 11/24/20) by 6 week US and LMP who presents today for induction of labor. AROM was performed at 0905 with clear fluid; mother and baby tolerated the proc edure well. 1. Induction of labor with AROM - Augmentation of labor with Pitocin as indicated 2. GBS - 3. A+ with negative antibody screen 4. Rubella immune 5. Continuous monitoring 6. Activity as tolerated 7. Small amounts of regular diet 8. Pain management as patient desires 9. Plans to breastfeed 10. Anticipate vaginal delivery unless otherwise indicated
[2020-11-25] MEDS: Acetaminophen/oxyCODONE 325-5 MG Tab PO PRN (23:18)
[2020-11-26] MEDS: Acetaminophen/oxyCODONE 325-5 MG Tab PO PRN ×3 (04:03→14:26)
[2020-11-26] MEDS ORDERED: Docusate Sodium 100 MG Cap PO PRN (08:35)
[2020-11-26] MEDS: Ibuprofen 600 MG Tab PO PRN ×2 (08:40→14:27)
--- NOTE | 2020-11-26 08:57 | PCM.PNPP ---
<Cameron Tolentino - Last Filed: 11/26/20 12:10> - General Info Date of Service: 11/26/20 Admission Dx/Problem (Free Text): Patient Status Order with Admit Dx/Problem 11/24/20 07:50 Patient Status [ADT] Routine Admission Diagnosis/Problem Admission Diagnosis/Problem Subjective Update: POD2 after late evening primary for NRFHT. She is doing well today. She is unsure if she would like to go home today; she is breast feeding and this is going well. She reports that she has some pain but has been reducing her use of Percocet to see how she tolerates her pain. She has not yet used ibuprofen for pain management. Reports she has not yet had a bowel movement but has a history of constipation during . Is passing gas. Use of stool softeners were discussed. Functional Status: Reports: Pain Controlled, Tolerating Diet, Ambulating, Urinating - General Info Date of Service: 11/26/20 - Patient Data Vital Signs - Most Recent: Last Vital Signs Temp 98.6 F 11/26/20 03:57 Pulse 90 11/26/20 03:57 Resp 16 11/26/20 03:57 BP 135/70 11/26/20 03:57 Pulse Ox 97 11/26/20 03:57 Weight - Most Recent: 90.038 kg I&O - Last 24 Hours: Intake & Output 11/25/20 11/26/20 11/26/20 22:59 06:59 14:59 Intake Total 5320 Output Total 1100 Balance 4220 Lab Results - Last 24 Hours: Laboratory Results - last 24 hr 11/24/20 Range/Units 08:24 RPR Non-reactive (NONREACTIVE) Med Orders - Current: Current Medications Diphenhydramine HCl (Diphenhydramine 50 Mg/Ml Sdv) 25 mg IVPUSH Q6H PRN PRN Reason: Itching or Nausea Docusate Sodium (Docusate Sodium 100 Mg Cap) 100 mg PO BID PRN PRN Reason: Constipation Last Admin: 11/26/20 08:40 Dose: 100 mg Documented by: Ephedrine Sulfate (Ephedrine 50 Mg/Ml Sdv) 5 mg IVPUSH SEECOMMENT PRN PRN Reason: Other Ibuprofen (Ibuprofen 600 Mg Tab) 600 mg PO Q6H PRN PRN Reason: mild pain or fever Last Admin: 11/26/20 08:40 Dose: 600 mg Documented by: Naloxone HCl (Naloxone 0.4 Mg/Ml Sdv) 0.1 mg IVPUSH SEECOMMENT PRN PRN Reason: Respiratory Depression Oxycodone/Acetaminophen (Acetaminophen/Oxycodone 325-5 Mg Tab) 1 tab PO Q4H PRN PRN Reason: Pain (moderate 4-6) Last Admin: 11/26/20 04:03 Dose: 1 tab Documented by: Oxycodone/Acetaminophen (Acetaminophen/Oxycodone 325-5 Mg Tab) 2 tab PO Q4H PRN PRN Reason: Pain (severe 7-10) Discontinued Medications Acetaminophen (Acetaminophen 325 Mg Tab) 650 mg PO Q4H PRN PRN Reason: Pain (Mild 1-3) and fever Bupivacaine HCl (Bupivacaine 0.5% 30 Ml Sdv) Confirm Administered Dose 30 ml .ROUTE .STK-MED ONE Stop: 11/24/20 22:52 Last Admin: 11/24/20 23:13 Dose: 17 ml Documented by: Bupivacaine HCl (Bupivacaine 0.25% 10 Ml Sdv) 10 ml .ROUTE .STK-MED ONE Stop: 11/24/20 18:01 Cefazolin Sodium (Cefazolin 1 Gm Vial) Confirm Administered Dose 2 gm .ROUTE .STK-MED ONE Stop: 11/24/20 22:53 Citric Acid/Sodium Citrate (Citric Acid/Sodium Citrate Solution 30 Ml Cup) 30 ml PO ONETIME ONE Stop: 11/24/20 22:33 Last Admin: 11/24/20 22:43 Dose: 30 ml Documented by: Diphenhydramine HCl (Diphenhydramine 50 Mg/Ml Sdv) 25 mg IVPUSH Q6H PRN PRN Reason: pruritis Ephedrine Sulfate (Ephedrine 50 Mg/Ml Sdv) 5 mg IVPUSH ASDIRECTED PRN PRN Reason: Hypotension Ephedrine Sulfate (Ephedrine 50 Mg/Ml Sdv) 5 mg IVPUSH ASDIRECTED PRN PRN Reason: Hypotension Fentanyl (Fentanyl 100 Mcg/2 Ml Sdv) 100 mcg EPIDUR Q3H PRN PRN Reason: Pain Last Admin: 11/24/20 19:54 Dose: 100 mcg Documented by: Fentanyl (Fentanyl 100 Mcg/2 Ml Sdv) Confirm Administered Dose 100 mcg .ROUTE .STK-MED ONE Stop: 11/24/20 22:53 Fentanyl (Fentanyl 100 Mcg/2 Ml Sdv) 50 mcg IVPUSH Q20M PRN PRN Reason: Pain Fentanyl/Bupivacaine HCl (Bupivacaine/Fentanyl/Ns 100 Ml Bag) 100 ml EPIDUR ASDIRECTED [facility] Hydromorphone HCl (Hydromorphone 0.5 Mg/0.5 Ml Syringe) 0.5 mg IVPUSH Q10M PRN PRN Reason: Pain (severe 7-10) Oxytocin/Lactated Ringer's (Pitocin In Lr 10 Units/1,000 Ml) 10 unit in 1,000 mls @ 12 mls/hr IV TITRATE PERRY; Protocol Last Titration: 11/24/20 22:09 Dose: 2 munits/min, 12 mls/hr Documented by: Oxytocin/Lactated Ringer's (Pitocin In Lr 10 Units/1,000 Ml) 10 unit in 1,000 mls @ 100 mls/hr IV .CONTINUOUS PERRY; Protocol Lactated Ringer's (Ringers, Lactated) 1,000 mls @ 100 mls/hr IV ASDIRECTED PERRY Last Admin: 11/24/20 20:29 Dose: 100 mls/hr Documented by: Cefazolin Sodium/Dextrose 2 gm (/ Premix) 50 mls @ 100 mls/hr IV ONETIME ONE Stop: 11/24/20 23:01 Last Admin: 11/25/20 04:40 Dose: Not Given Documented by: Azithromycin 500 mg/ Sodium (Chloride) 250 mls @ 250 mls/hr IV ONETIME ONE Stop: 11/24/20 23:31 Last Admin: 11/24/20 22:48 Dose: 250 mls/hr Documented by: Lactated Ringer's (Ringers, Lactated) Confirm Administered Dose 2,000 mls @ as directed .ROUTE .STK-MED ONE Stop: 11/24/20 22:53 Dextrose/Lactated Ringer's (Dextrose 5%-Lactated Ringers) 1,000 mls @ 125 mls/hr IV ASDIRECTED PERRY Stop: 11/25/20 09:41 Last Admin: 11/25/20 02:56 Dose: 125 mls/hr Documented by: Ketorolac Tromethamine (Ketorolac 30 Mg/Ml Sdv) Confirm Administered Dose 30 mg .ROUTE .STK-MED ONE Stop: 11/24/20 22:53 Ketorolac Tromethamine (Ketorolac 30 Mg/Ml Sdv) 30 mg IVPUSH Q6H [facility] Stop: 11/25/20 14:01 Last Admin: 11/25/20 04:38 Dose: Not Given Documented by: Ketorolac Tromethamine (Ketorolac 30 Mg/Ml Sdv) 30 mg IVPUSH Q6H [facility] Stop: 11/25/20 17:31 Last Admin: 11/25/20 18:35 Dose: 30 mg Documented by: Lidocaine/Epinephrine (Lidocaine 2% With Epinephrine 1:200,000 20 Ml Sdv) Confirm Administered Dose 20 ml .ROUTE .STK-MED ONE Stop: 11/24/20 22:53 Metoclopramide HCl (Metoclopramide 10 Mg/2 Ml Sdv) 10 mg IVPUSH ONETIME ONE Stop: 11/24/20 22:33 Last Admin: 11/24/20 22:44 Dose: 10 mg Documented by: Metoclopramide HCl (Metoclopramide 10 Mg/2 Ml Sdv) Confirm Administered Dose 10 mg .ROUTE .[employer]-MED ONE Stop: 11/24/20 22:42 Last Admin: 11/25/20 07:12 Dose: Not Given Documented by: Miscellaneous Medication (Phenylephrine Hcl In 0.9% Nacl 1 Mg/10 Ml Syringe) 0.1 mg IVPUSH Q10M PRN PRN Reason: Hypotension Miscellaneous Medication (Phenylephrine Hcl In 0.9% Nacl 1 Mg/10 Ml Syringe) Confirm Administered Dose 1 mg .ROUTE .STK-MED ONE Stop: 11/24/20 22:53 Morphine Sulfate (Morphine Pf 10 Mg/10 Ml Sdv) Confirm Administered Dose 10 mg .ROUTE .STK-MED ONE Stop: 11/24/20 22:53 Nalbuphine HCl (Nalbuphine 10 Mg/1 Ml Vial) 10 mg IVPUSH Q2H PRN PRN Reason: Pain Ondansetron HCl (Ondansetron 4 Mg/2 Ml Sdv) 4 mg IVPUSH Q4H PRN PRN Reason: Nausea/Vomiting Ondansetron HCl (Ondansetron 4 Mg/2 Ml Sdv) 4 mg IVPUSH ONETIME PRN PRN Reason: Nausea/Vomiting Ondansetron HCl (Ondansetron 4 Mg/2 Ml Sdv) Confirm Administered Dose 4 mg .ROUTE .[employer] ONE Stop: 11/24/20 22:53 Ondansetron HCl (Ondansetron 4 Mg/2 Ml Sdv) 4 mg IVPUSH ONETIME PRN PRN Reason: Nausea/Vomiting Oxytocin (Oxytocin 10 Units/1 Ml Sdv) Confirm Administered Dose 10 unit .ROUTE .[employer] ONE Stop: 11/24/20 22:53 Phenylephrine HCl (Phenylephrine/Normal Saline 100 Mcg/Ml 10 Ml Syringe) 0.1 mg IVPUSH Q10M PRN PRN Reason: Hypotension Sodium Chloride (Sodium Chloride 0.9% 10 Ml Syringe) 10 ml FLUSH ASDIRECTED PRN PRN Reason: Keep Vein Open - Infant Interaction Disposition, : [place] in Room with Family Infant Interaction: Holding Feeding: Attempted ; Nursed Fair/Poor Support Person: Significant Other - Recovery Exam Fundal Tone: Firm Fundal Level: At Umbilicus Fundal Placement: Midline Lochia Amount: Small Lochia Color: Rubra/Red Perineum Description: Intact, Minimal Bruising/Swelling Episiotomy/Laceration: None Bladder Status: Voiding - Exam General: Alert, Oriented Lungs: Clear to Auscultation, Normal Respiratory Effort Cardiovascular: Regular Rate, Regular Rhythm Extremities: Normal Inspection, Normal Capillary Refill, Pedal Edema (Trace) Skin: Warm, Dry, Intact Psy/Mental Status: Alert, Normal Affect, Normal Mood - Problem List & Annotations (1) Gestational diabetes SNOMED Code(s): 53759110 Code(s): O24.419 - GESTATIONAL DIABETES MELLITUS IN , UNSP CONTROL Status: Acute Current Visit: Yes (2) 40 weeks gestation of SNOMED Code(s): 81676302 Code(s): Z3A.40 - 40 WEEKS GESTATION OF Status: Acute Current Visit: Yes (3) Anxiety and depression SNOMED Code(s): 789514608 Code(s): F41.9 - ANXIETY DISORDER, UNSPECIFIED; F32.9 - MAJOR DEPRESSIVE DISORDER, SINGLE EPISODE, UNSPECIFIED Status: Acute Current Visit: Yes (4) S/P primary low transverse SNOMED Code(s): 262417643, 72678273, 179790152, 964458301, 075124257 Code(s): Z98.891 - HISTORY OF UTERINE SCAR FROM PREVIOUS SURGERY Status: Acute Current Visit: Yes - Problem List Review Problem List Initiated/Reviewed/Updated: Yes - Assessment Assessment:: POD#2 Primary for non reassuring heart tones following induction of labor at 40-0 weeks gestational age to a A+ GBS - G2 now P2002 35 year old female with gestational diabetes managed with metformin. - Plan Plan:: 1. PPD#2 late night on 11/24/20 for non reassuring heart tone 2. GBS - 3. A+ with negative antibody screen 4. Rubella immune 5. care per unit routine 6. Activity as tolerated 7. Regular diet 8. Gestational diabetes - recheck 2 hour glucola 6 weeks 9. as tolerated 10. Discharge home in the next 24 hours pending field sales executive recommendation 11. Anxiety/depression - patient plans on starting Escitalopram upon discharge <Dick Watts - Last Filed: 11/26/20 15:36> - Patient Data Vital Signs - Most Recent: Last Vital Signs Temp 36.7 C 11/26/20 08:44 Pulse 92 11/26/20 08:44 Resp 14 11/26/20 08:44 BP 125/72 11/26/20 08:44 Pulse Ox 97 11/26/20 08:44 I&O - Last 24 Hours: Intake & Output 11/26/20 11/26/20 11/26/20 06:59 14:59 22:59 Intake Total 120 Balance 120 Lab Results - Last 24 Hours: Laboratory Results - last 24 hr 11/24/20 Range/Units 08:24 RPR Non-reactive (NONREACTIVE) Med Orders - Current: Current Medications Diphenhydramine HCl (Diphenhydramine 50 Mg/Ml Sdv) 25 mg IVPUSH Q6H PRN PRN Reason: Itching or Nausea Docusate Sodium (Docusate Sodium 100 Mg Cap) 100 mg PO BID PRN PRN Reason: Constipation Last Admin: 11/26/20 08:40 Dose: 100 mg Documented by: Ephedrine Sulfate (Ephedrine 50 Mg/Ml Sdv) 5 mg IVPUSH SEECOMMENT PRN PRN Reason: Other Ibuprofen (Ibuprofen 600 Mg Tab) 600 mg PO Q6H PRN PRN Reason: mild pain or fever Last Admin: 11/26/20 14:27 Dose: 600 mg Documented by: Naloxone HCl (Naloxone 0.4 Mg/Ml Sdv) 0.1 mg IVPUSH SEECOMMENT PRN PRN Reason: Respiratory Depression Oxycodone/Acetaminophen (Acetaminophen/Oxycodone 325-5 Mg Tab) 1 tab PO Q4H PRN PRN Reason: Pain (moderate 4-6) Last Admin: 11/26/20 14:26 Dose: 1 tab Documented by: Oxycodone/Acetaminophen (Acetaminophen/Oxycodone 325-5 Mg Tab) 2 tab PO Q4H PRN PRN Reason: Pain (severe 7-10) Discontinued Medications Acetaminophen (Acetaminophen 325 Mg Tab) 650 mg PO Q4H PRN PRN Reason: Pain (Mild 1-3) and fever Bupivacaine HCl (Bupivacaine 0.5% 30 Ml Sdv) Confirm Administered Dose 30 ml .ROUTE .STK-MED ONE Stop: 11/24/20 22:52 Last Admin: 11/24/20 23:13 Dose: 17 ml Documented by: Bupivacaine HCl (Bupivacaine 0.25% 10 Ml Sdv) 10 ml .ROUTE .STK-MED ONE Stop: 11/24/20 18:01 Cefazolin Sodium (Cefazolin 1 Gm Vial) Confirm Administered Dose 2 gm .ROUTE .STK-MED ONE Stop: 11/24/20 22:53 Citric Acid/Sodium Citrate (Citric Acid/Sodium Citrate Solution 30 Ml Cup) 30 ml PO ONETIME ONE Stop: 11/24/20 22:33 Last Admin: 11/24/20 22:43 Dose: 30 ml Documented by: Diphenhydramine HCl (Diphenhydramine 50 Mg/Ml Sdv) 25 mg IVPUSH Q6H PRN PRN Reason: pruritis Ephedrine Sulfate (Ephedrine 50 Mg/Ml Sdv) 5 mg IVPUSH ASDIRECTED PRN PRN Reason: Hypotension Ephedrine Sulfate (Ephedrine 50 Mg/Ml Sdv) 5 mg IVPUSH ASDIRECTED PRN PRN Reason: Hypotension Fentanyl (Fentanyl 100 Mcg/2 Ml Sdv) 100 mcg EPIDUR Q3H PRN PRN Reason: Pain Last Admin: 11/24/20 19:54 Dose: 100 mcg Documented by: Fentanyl (Fentanyl 100 Mcg/2 Ml Sdv) Confirm Administered Dose 100 mcg .ROUTE .STK-MED ONE Stop: 11/24/20 22:53 Fentanyl (Fentanyl 100 Mcg/2 Ml Sdv) 50 mcg IVPUSH Q20M PRN PRN Reason: Pain Fentanyl/Bupivacaine HCl (Bupivacaine/Fentanyl/Ns 100 Ml Bag) 100 ml EPIDUR ASDIRECTED PERRY Hydromorphone HCl (Hydromorphone 0.5 Mg/0.5 Ml Syringe) 0.5 mg IVPUSH Q10M PRN PRN Reason: Pain (severe 7-10) Oxytocin/Lactated Ringer's (Pitocin In Lr 10 Units/1,000 Ml) 10 unit in 1,000 mls @ 12 mls/hr IV TITRATE PERRY; Protocol Last Titration: 11/24/20 22:09 Dose: 2 munits/min, 12 mls/hr Documented by: Oxytocin/Lactated Ringer's (Pitocin In Lr 10 Units/1,000 Ml) 10 unit in 1,000 mls @ 100 mls/hr IV .CONTINUOUS PERRY; Protocol Lactated Ringer's (Ringers, Lactated) 1,000 mls @ 100 mls/hr IV ASDIRECTED PERRY Last Admin: 11/24/20 20:29 Dose: 100 mls/hr Documented by: Cefazolin Sodium/Dextrose 2 gm (/ Premix) 50 mls @ 100 mls/hr IV ONETIME ONE Stop: 11/24/20 23:01 Last Admin: 11/25/20 04:40 Dose: Not Given Documented by: Azithromycin 500 mg/ Sodium (Chloride) 250 mls @ 250 mls/hr IV ONETIME ONE Stop: 11/24/20 23:31 Last Admin: 11/24/20 22:48 Dose: 250 mls/hr Documented by: Lactated Ringer's (Ringers, Lactated) Confirm Administered Dose 2,000 mls @ as directed .ROUTE .STK-MED ONE Stop: 11/24/20 22:53 Dextrose/Lactated Ringer's (Dextrose 5%-Lactated Ringers) 1,000 mls @ 125 mls/hr IV ASDIRECTED [facility] Stop: 11/25/20 09:41 Last Admin: 11/25/20 02:56 Dose: 125 mls/hr Documented by: Ketorolac Tromethamine (Ketorolac 30 Mg/Ml Sdv) Confirm Administered Dose 30 mg .ROUTE .STK-MED ONE Stop: 11/24/20 22:53 Ketorolac Tromethamine (Ketorolac 30 Mg/Ml Sdv) 30 mg IVPUSH Q6H [facility] Stop: 11/25/20 14:01 Last Admin: 11/25/20 04:38 Dose: Not Given Documented by: Ketorolac Tromethamine (Ketorolac 30 Mg/Ml Sdv) 30 mg IVPUSH Q6H [facility] Stop: 11/25/20 17:31 Last Admin: 11/25/20 18:35 Dose: 30 mg Documented by: Lidocaine/Epinephrine (Lidocaine 2% With Epinephrine 1:200,000 20 Ml Sdv) Confirm Administered Dose 20 ml .ROUTE .[employer]MED ONE Stop: 11/24/20 22:53 Metoclopramide HCl (Metoclopramide 10 Mg/2 Ml Sdv) 10 mg IVPUSH ONETIME ONE Stop: 11/24/20 22:33 Last Admin: 11/24/20 22:44 Dose: 10 mg Documented by: Metoclopramide HCl (Metoclopramide 10 Mg/2 Ml Sdv) Confirm Administered Dose 10 mg .ROUTE .[employer]-MED ONE Stop: 11/24/20 22:42 Last Admin: 11/25/20 07:12 Dose: Not Given Documented by: Miscellaneous Medication (Phenylephrine Hcl In 0.9% Nacl 1 Mg/10 Ml Syringe) 0.1 mg IVPUSH Q10M PRN PRN Reason: Hypotension Miscellaneous Medication (Phenylephrine Hcl In 0.9% Nacl 1 Mg/10 Ml Syringe) Confirm Administered Dose 1 mg .ROUTE .[employer]MED ONE Stop: 11/24/20 22:53 Morphine Sulfate (Morphine Pf 10 Mg/10 Ml Sdv) Confirm Administered Dose 10 mg .ROUTE .STK-MED ONE Stop: 11/24/20 22:53 Nalbuphine HCl (Nalbuphine 10 Mg/1 Ml Vial) 10 mg IVPUSH Q2H PRN PRN Reason: Pain Ondansetron HCl (Ondansetron 4 Mg/2 Ml Sdv) 4 mg IVPUSH Q4H PRN PRN Reason: Nausea/Vomiting Ondansetron HCl (Ondansetron 4 Mg/2 Ml Sdv) 4 mg IVPUSH ONETIME PRN PRN Reason: Nausea/Vomiting Ondansetron HCl (Ondansetron 4 Mg/2 Ml Sdv) Confirm Administered Dose 4 mg .ROUTE .[employer] ONE Stop: 11/24/20 22:53 Ondansetron HCl (Ondansetron 4 Mg/2 Ml Sdv) 4 mg IVPUSH ONETIME PRN PRN Reason: Nausea/Vomiting Oxytocin (Oxytocin 10 Units/1 Ml Sdv) Confirm Administered Dose 10 unit .ROUTE .STK-MED ONE Stop: 11/24/20 22:53 Phenylephrine HCl (Phenylephrine/Normal Saline 100 Mcg/Ml 10 Ml Syringe) 0.1 mg IVPUSH Q10M PRN PRN Reason: Hypotension Sodium Chloride (Sodium Chloride 0.9% 10 Ml Syringe) 10 ml FLUSH ASDIRECTED PRN PRN Reason: Keep Vein Open - Problem List & Annotations (1) 40 weeks gestation of SNOMED Code(s): 35492934 Code(s): Z3A.40 - 40 WEEKS GESTATION OF Status: Acute Current Visit: Yes (2) Anxiety and depression SNOMED Code(s): 830119499 Code(s): F41.9 - ANXIETY DISORDER, UNSPECIFIED; F32.9 - MAJOR DEPRESSIVE DISORDER, SINGLE EPISODE, UNSPECIFIED Status: Acute Current Visit: Yes (3) Gestational diabetes SNOMED Code(s): 49358011 Code(s): O24.419 - GESTATIONAL DIABETES MELLITUS IN , UNSP CONTROL Status: Acute Current Visit: Yes (4) S/P primary low transverse SNOMED Code(s): 919238350, 40717013, 623747255, 817512171, 422890834 Code(s): Z98.891 - HISTORY OF UTERINE SCAR FROM PREVIOUS SURGERY Status: Acute Current Visit: Yes - My Orders Last 24 Hours: My Active Orders 11/26/20 15:27 Ready for Discharge [RC] PER UNIT ROUTINE - Plan Plan:: I have seen and evaluated the patient with the medical student and agree with her plan as above. Patient desires to be discharged home in the afternoon of POD #2. Patient to follow-up with her regular [facility] in 2 weeks for routine visit or earlier as needed. Patient should have 2-hour glucose tolerance test in 6 to 12 weeks after delivery to check for type 2 diabetes. Dick Watts MD 3:36 PM 11/26/2020
--- NOTE | 2020-11-26 15:50 | PCM.DCSUM1 ---
Discharge Summary - Hospital Course Free Text/Narrative:: - General Post-Op/Procedure Note Date of Surgery/Procedure: 11/25/20 Operative Procedure(s): primary section Findings: viable female, weight 7#12oz, 9/9 APGARS at 2319. Normal uterus tubes and ovaries. Pre Op Diagnosis: NRFHT Post-Op Diagnosis: Same Primary Surgeon: Celia Peguero Anesthesia Provider: Marcy Vargas Detective Chief: Anju Maciel Detective Chief: Cameron Tolentino Fluid Replacement, Intraop: 800 Output, Urine Amount: 200 EBL in mLs: 600 Complications: None Condition: Good Free Text/Narrative:: The patient was taken to the operating room where epidural anesthesia was dosed to surgical levels without difficulty. The patient was prepped and draped in the usual sterile fashion in the dorsal supine position with a leftward tilt. A Pfannenstiel skin incision was made with the scalpel and carried through to the underlying layer of fascia. The fascia was incised in the midline and extended laterally using Leung scissors. Cristiano clamps were used to elevate the superior aspect of the fascial incision, which was elevated, and the underlying rectus muscles were dissected off bluntly and using Leung scissors. Small area of bleeding on rectus rendered hemostatic with one figure of eight suture. Attention was then turned to the inferior aspect of the fascial incision, which in similar fashion was grasped with Cristiano clamps, elevated, and the underlying rectus muscles were dissected off bluntly and using the leung. The rectus muscles were dissected in the midline. The peritoneum was entered bluntly; this incision was extended superiorly and inferiorly with good visualization of the bladder. The bladder blade was inserted. The vesicouterine peritoneum was identified and entered sharply using Metzenbaum scissors. This incision was extended laterally and the bladder flap was created digitally. The bladder blade was reinserted. The lower uterine segment was incised in a transverse fashion using the scalpel and with digital traction. Clear fluid was noted. The infant was subsequently delivered by flexing the head to the incision. Body and shoulders followed without difficulty. The cord was clamped and cut. The was subsequently handed to the awaiting director of search engine marketing whose presence had been requested.. The placenta was delivered spontaneously intact with a three-vessel cord noted. The uterus was exteriorized and cleared of all clots and debris. The uterine incision was repaired in 2 layers using 0 monocryl. Hemostasis was visualized. Hemostasis was visualized bilaterally. The uterus was returned to the abdomen. The uterine incision was reexamined and it was noted to be hemostatic. The pelvis was copiously irrigated. The fascia was closed with 1 PDS suture, and the skin was closed with 3-0 monocryl. Sponge, lap, and instrument counts were correct x2. The patient was stable at the completion of the procedure and was subsequently transferred to the recovery room in stable condition. Diagnosis: Stroke: No - Discharge Data Discharge Date: 11/26/20 Discharge Disposition: Home, Self-Care 01 Condition: Good - Referral to Home Health Primary Care Physician: Celia Peguero MD - Discharge Diagnosis/Problem(s) (1) 40 weeks gestation of SNOMED Code(s): 28184692 ICD Code: Z3A.40 - 40 WEEKS GESTATION OF Status: Acute Current Visit: Yes (2) Anxiety and depression SNOMED Code(s): 079188940 ICD Code: F41.9 - ANXIETY DISORDER, UNSPECIFIED; F32.9 - MAJOR DEPRESSIVE DISORDER, SINGLE EPISODE, UNSPECIFIED Status: Acute Current Visit: Yes (3) Gestational diabetes SNOMED Code(s): 60145446 ICD Code: O24.419 - GESTATIONAL DIABETES MELLITUS IN , UNSP CONTROL Status: Acute Current Visit: Yes (4) S/P primary low transverse SNOMED Code(s): 276437122, 53371634, 680557805, 470764201, 047125375 ICD Code: Z98.891 - HISTORY OF UTERINE SCAR FROM PREVIOUS SURGERY Status: Acute Current Visit: Yes - Patient Summary/Data Operative Procedure(s) Performed: primary section Hospital Course: Natalie Michaud was admitted for induction of labor. On admission her cervix was 1 to 2 cm. She was GBS negative. She was started on Pitocin for induction of labor. She had artificial rupture membranes with clear fluid. She was given an epidural for anesthesia. She was having nonreassuring heart tones at 2 cm dilated and resuscitation attempts were made. She eventually progressed to 5 cm after the Pitocin was restarted and then had minimal change afterwards. She continued to have nonreassuring heart tones with minimal change in her cervix and decision was made to proceed with section. She was taken back to the OR and given dosing through her epidural for anesthesia. She was prepped and draped in the normal fashion. On 11/24/2020 she had a primary delivery of a live female infant at 23:19. Apgars of 9 and 9. Weight of 3520 g (7 pounds 12.2 ounces). She was closed in a normal fashion. There were no complications with the procedure. Please see the operative report for full details. Her post operative course was uneventful. Her pain was well controlled and she had minimal lochia. She was ambulating, tolerating a regular diet and voiding normally. She was passing flatus and has not had a bowel movement. She was breast feeding without difficulty. She was afebrile and her hematocrit was 30.0 on POD #1. She desired to be discharged home in the afternoon of POD #2. Her blood type is A+. - Patient Instructions Diet: Regular Diet as Tolerated Activity: Apply Ice, As Tolerated, No Lifting Over 25 Pounds Activity, Other: Nothing in the vagina for 6 weeks Driving: Do Not Drive (While taking narcotic medications or having significant pain.) Showering/Bathing: May Shower Wound/Incision Care: Keep Operative Site/Wound Site Clean and Dry Notify Provider of: Fever, Increased Pain, Swelling and Redness, Drainage, Nausea and/or Vomiting Other/Special Instructions: Please contact your physician's office if you note any bleeding or pus coming from the abdominal incision. Please contact your physician's office if you have heavy vaginal bleeding enough to soak a pad in less than an hour for several hours. Monitor for any signs of an infection in the breasts with severe pain or redness of the breast. - Discharge Plan *PRESCRIPTION DRUG MONITORING PROGRAM REVIEWED*: Yes *COPY OF PRESCRIPTION DRUG MONITORING REPORT IN PATIENT JESUS: No Prescriptions/Med Rec: Acetaminophen/oxyCODONE [Percocet 325-5 MG] 1 - 2 tab PO Q4H PRN #20 tablet PRN Reason: Pain Home Medications: Home Meds Pnv No.95/Ferrous Fum/Folic AC [ Tablet] 1 tab PO DAILY 11/24/20 [History] Acetaminophen/oxyCODONE [Percocet 325-5 MG] 1 - 2 tab PO Q4H PRN #20 tablet 11/26/20 [Rx] Docusate Sodium [Colace] 100 mg PO BID #60 cap 11/26/20 [Rx] Ibuprofen [Motrin] 600 mg PO Q6H PRN tablet 11/26/20 [Rx] Patient Handouts: Delivery, Care After Referrals: Hesham Still MD [Physician] - (Follow-up in 2 weeks for routine postoperative visit or earlier as needed.) - Discharge Summary/Plan Comment DC Time >30 min.: No - Patient Data Vitals - Most Recent: Last Vital Signs Temp 36.7 C 11/26/20 08:44 Pulse 92 11/26/20 08:44 Resp 14 11/26/20 08:44 BP 125/72 11/26/20 08:44 Pulse Ox 97 11/26/20 08:44 Weight - Most Recent: 90.038 kg I&O - Last 24 hours: Intake & Output 11/26/20 11/26/20 11/26/20 06:59 14:59 22:59 Intake Total 120 Balance 120 Lab Results - Last 24 hrs: Laboratory Results - last 24 hr 11/24/20 Range/Units 08:24 RPR Non-reactive (NONREACTIVE) Med Orders - Current: Current Medications Diphenhydramine HCl (Diphenhydramine 50 Mg/Ml Sdv) 25 mg IVPUSH Q6H PRN PRN Reason: Itching or Nausea Docusate Sodium (Docusate Sodium 100 Mg Cap) 100 mg PO BID PRN PRN Reason: Constipation Last Admin: 11/26/20 08:40 Dose: 100 mg Documented by: Ephedrine Sulfate (Ephedrine 50 Mg/Ml Sdv) 5 mg IVPUSH SEECOMMENT PRN PRN Reason: Other Ibuprofen (Ibuprofen 600 Mg Tab) 600 mg PO Q6H PRN PRN Reason: mild pain or fever Last Admin: 11/26/20 14:27 Dose: 600 mg Documented by: Naloxone HCl (Naloxone 0.4 Mg/Ml Sdv) 0.1 mg IVPUSH SEECOMMENT PRN PRN Reason: Respiratory Depression Oxycodone/Acetaminophen (Acetaminophen/Oxycodone 325-5 Mg Tab) 1 tab PO Q4H PRN PRN Reason: Pain (moderate 4-6) Last Admin: 11/26/20 14:26 Dose: 1 tab Documented by: Oxycodone/Acetaminophen (Acetaminophen/Oxycodone 325-5 Mg Tab) 2 tab PO Q4H PRN PRN Reason: Pain (severe 7-10) Discontinued Medications Acetaminophen (Acetaminophen 325 Mg Tab) 650 mg PO Q4H PRN PRN Reason: Pain (Mild 1-3) and fever Bupivacaine HCl (Bupivacaine 0.5% 30 Ml Sdv) Confirm Administered Dose 30 ml .ROUTE .STK-MED ONE Stop: 11/24/20 22:52 Last Admin: 11/24/20 23:13 Dose: 17 ml Documented by: Bupivacaine HCl (Bupivacaine 0.25% 10 Ml Sdv) 10 ml .ROUTE .STK-MED ONE Stop: 11/24/20 18:01 Cefazolin Sodium (Cefazolin 1 Gm Vial) Confirm Administered Dose 2 gm .ROUTE .[employer]-MED ONE Stop: 11/24/20 22:53 Citric Acid/Sodium Citrate (Citric Acid/Sodium Citrate Solution 30 Ml Cup) 30 ml PO ONETIME ONE Stop: 11/24/20 22:33 Last Admin: 11/24/20 22:43 Dose: 30 ml Documented by: Diphenhydramine HCl (Diphenhydramine 50 Mg/Ml Sdv) 25 mg IVPUSH Q6H PRN PRN Reason: pruritis Ephedrine Sulfate (Ephedrine 50 Mg/Ml Sdv) 5 mg IVPUSH ASDIRECTED PRN PRN Reason: Hypotension Ephedrine Sulfate (Ephedrine 50 Mg/Ml Sdv) 5 mg IVPUSH ASDIRECTED PRN PRN Reason: Hypotension Fentanyl (Fentanyl 100 Mcg/2 Ml Sdv) 100 mcg EPIDUR Q3H PRN PRN Reason: Pain Last Admin: 11/24/20 19:54 Dose: 100 mcg Documented by: Fentanyl (Fentanyl 100 Mcg/2 Ml Sdv) Confirm Administered Dose 100 mcg .ROUTE .[employer]-MED ONE Stop: 11/24/20 22:53 Fentanyl (Fentanyl 100 Mcg/2 Ml Sdv) 50 mcg IVPUSH Q20M PRN PRN Reason: Pain Fentanyl/Bupivacaine HCl (Bupivacaine/Fentanyl/Ns 100 Ml Bag) 100 ml EPIDUR ASDIRECTED PERRY Hydromorphone HCl (Hydromorphone 0.5 Mg/0.5 Ml Syringe) 0.5 mg IVPUSH Q10M PRN PRN Reason: Pain (severe 7-10) Oxytocin/Lactated Ringer's (Pitocin In Lr 10 Units/1,000 Ml) 10 unit in 1,000 mls @ 12 mls/hr IV TITRATE PERRY; Protocol Last Titration: 11/24/20 22:09 Dose: 2 munits/min, 12 mls/hr Documented by: Oxytocin/Lactated Ringer's (Pitocin In Lr 10 Units/1,000 Ml) 10 unit in 1,000 mls @ 100 mls/hr IV .CONTINUOUS PERRY; Protocol Lactated Ringer's (Ringers, Lactated) 1,000 mls @ 100 mls/hr IV ASDIRECTED PERRY Last Admin: 11/24/20 20:29 Dose: 100 mls/hr Documented by: Cefazolin Sodium/Dextrose 2 gm (/ Premix) 50 mls @ 100 mls/hr IV ONETIME ONE Stop: 11/24/20 23:01 Last Admin: 11/25/20 04:40 Dose: Not Given Documented by: Azithromycin 500 mg/ Sodium (Chloride) 250 mls @ 250 mls/hr IV ONETIME ONE Stop: 11/24/20 23:31 Last Admin: 11/24/20 22:48 Dose: 250 mls/hr Documented by: Lactated Ringer's (Ringers, Lactated) Confirm Administered Dose 2,000 mls @ as directed .ROUTE .STK-MED ONE Stop: 11/24/20 22:53 Dextrose/Lactated Ringer's (Dextrose 5%-Lactated Ringers) 1,000 mls @ 125 mls/hr IV ASDIRECTED PERRY Stop: 11/25/20 09:41 Last Admin: 11/25/20 02:56 Dose: 125 mls/hr Documented by: Ketorolac Tromethamine (Ketorolac 30 Mg/Ml Sdv) Confirm Administered Dose 30 mg .ROUTE .STK-MED ONE Stop: 11/24/20 22:53 Ketorolac Tromethamine (Ketorolac 30 Mg/Ml Sdv) 30 mg IVPUSH Q6H PERRY Stop: 11/25/20 14:01 Last Admin: 11/25/20 04:38 Dose: Not Given Documented by: Ketorolac Tromethamine (Ketorolac 30 Mg/Ml Sdv) 30 mg IVPUSH Q6H PERRY Stop: 11/25/20 17:31 Last Admin: 11/25/20 18:35 Dose: 30 mg Documented by: Lidocaine/Epinephrine (Lidocaine 2% With Epinephrine 1:200,000 20 Ml Sdv) Confirm Administered Dose 20 ml .ROUTE .[employer]-MED ONE Stop: 11/24/20 22:53 Metoclopramide HCl (Metoclopramide 10 Mg/2 Ml Sdv) 10 mg IVPUSH ONETIME ONE Stop: 11/24/20 22:33 Last Admin: 11/24/20 22:44 Dose: 10 mg Documented by: Metoclopramide HCl (Metoclopramide 10 Mg/2 Ml Sdv) Confirm Administered Dose 10 mg .ROUTE .[employer] ONE Stop: 11/24/20 22:42 Last Admin: 11/25/20 07:12 Dose: Not Given Documented by: Miscellaneous Medication (Phenylephrine Hcl In 0.9% Nacl 1 Mg/10 Ml Syringe) 0.1 mg IVPUSH Q10M PRN PRN Reason: Hypotension Miscellaneous Medication (Phenylephrine Hcl In 0.9% Nacl 1 Mg/10 Ml Syringe) Confirm Administered Dose 1 mg .ROUTE .[employer] ONE Stop: 11/24/20 22:53 Morphine Sulfate (Morphine Pf 10 Mg/10 Ml Sdv) Confirm Administered Dose 10 mg .ROUTE .[employer] ONE Stop: 11/24/20 22:53 Nalbuphine HCl (Nalbuphine 10 Mg/1 Ml Vial) 10 mg IVPUSH Q2H PRN PRN Reason: Pain Ondansetron HCl (Ondansetron 4 Mg/2 Ml Sdv) 4 mg IVPUSH Q4H PRN PRN Reason: Nausea/Vomiting Ondansetron HCl (Ondansetron 4 Mg/2 Ml Sdv) 4 mg IVPUSH ONETIME PRN PRN Reason: Nausea/Vomiting Ondansetron HCl (Ondansetron 4 Mg/2 Ml Sdv) Confirm Administered Dose 4 mg .ROUTE .[employer] ONE Stop: 11/24/20 22:53 Ondansetron HCl (Ondansetron 4 Mg/2 Ml Sdv) 4 mg IVPUSH ONETIME PRN PRN Reason: Nausea/Vomiting Oxytocin (Oxytocin 10 Units/1 Ml Sdv) Confirm Administered Dose 10 unit .ROUTE .[employer] ONE Stop: 11/24/20 22:53 Phenylephrine HCl (Phenylephrine/Normal Saline 100 Mcg/Ml 10 Ml Syringe) 0.1 mg IVPUSH Q10M PRN PRN Reason: Hypotension Sodium Chloride (Sodium Chloride 0.9% 10 Ml Syringe) 10 ml FLUSH ASDIRECTED PRN PRN Reason: Keep Vein Open
== END 2020-11-26 16:15 | disposition home or self-care (01) | DRG 788 ==
LOC: JD.OBCHECK 07:10 → JD.OB 07:12 → OBSVTOIN 23:19 → JD.OB 23:19
PROVIDERS: ADMIT Obstetrics & Gynecology; ATTEND Obstetrics & Gynecology
PROC: 10D00Z1 Extraction of Products of Conception, Low, Open Approach (ICD-10-PCS; principal; 2020-11-24)
PROC: 10907ZC Drainage of Amniotic Fluid, Therapeutic from Products of Conception, Via Natural or Artificial Opening (ICD-10-PCS; 2020-11-24)
PROC: 3E033VJ Introduction of Other Hormone into Peripheral Vein, Percutaneous Approach (ICD-10-PCS; 2020-11-24)
PROC: 3E0R3BZ Introduction of Anesthetic Agent into Spinal Canal, Percutaneous Approach (ICD-10-PCS; 2020-11-24)
DX: O24.425 Gestational diabetes mellitus in childbirth, controlled by oral hypoglycemic drugs (principal); Z37.0 Single live birth; O99.344 Other mental disorders complicating childbirth; F41.9 Anxiety disorder, unspecified; F32.9 Major depressive disorder, single episode, unspecified; Z3A.40 40 weeks gestation of pregnancy; Z20.822 Contact with and (suspected) exposure to COVID-19
CPT/HCPCS: 01967; 01968; 36415; 51702; 59025; 80053; 82570; 82962; 84156; 85025; 86592; 94762; 99140; A9270-GY; J0456; J0690; J1885; J2270; J2300; J2370; J2405; J2590; J2765; J3010; J3490; J7050; J7120; J7121; U0002